=== PATIENT | female | born 1980 | race Caucasian/White ===

== ENCOUNTER → 2017-02-20 | Outpatient (CLI) | payer OTHER ==
[~2017-02-20] MED LIST: /ONDA4TA OR; ACET65TA OR; CIPR25SS OR; LEVO25TA2 OR; NO MEDS AT HOME; PERC5TAB8 OR; [UNRECOGNIZED DRUG - OTHER] PO; percocet PO
--- NOTE | 2017-02-20 16:18 | REP ---
OB ULTRASOUND: Real-time sonographic evaluation of the gravid uterus performed utilizing transabdominal and endovaginal technique. There is a single living intrauterine gestation with an estimated gestational age of 20 weeks 1 days based on today's ultrasound measurements, [facility] [place] 07/09/2017. BPD 46 mm = 19 weeks 6 days HC 164 mm = 19 weeks 1 day AC 159 mm = 21 weeks 0 days FL 34 mm = 20 weeks 5 days HC/AC ratio 1.03, is slightly below the normal range of 1.06 to 1.24. Estimated weight 368 grams, 63rd percentile. Cervix is closed and measures 2.9 cm in length. heart rate 137 beats per minute. SEEN/GROSSLY UNREMARKABLE Lateral ventricles no Posterior fossa no Upper lip no Four-chamber heart no LVOT no RVOT yes Stomach yes Cord insertion yes Three vessel cord yes Kidneys no Bladder yes Spine no position: Variable. Placenta: Anterior and grade 0 with no previa or abruption. Amniotic fluid: Within normal limits. Please note the umbilical cord is draped across the internal cervical os on transvaginal imaging. Signed by Vin Owens MD 02/20/2017 05:18 P
== END ==
LOC: M RAD 14:35
PROVIDERS: ATTEND Physician Assistant
DX: Z36 Encounter for antenatal screening of mother (principal); Z3A.20 20 weeks gestation of pregnancy

== ENCOUNTER → 2017-03-03 | Outpatient (CLI) | payer OTHER ==
[2017-03-03 17:44] LABS: BASO % 0.3 % (0.0-1.0); EOS # 0.3 K/mm3 (0.0-0.50); EOS % 2.2 % (0.0-3.0); LARGE UNSTAINED CELL # 0.1 K/mm3 (0.0-0.4); LARGE UNSTAINED CELL % 0.6 % (0.0-4.0); LYMPH # 1.7 K/mm3 (1.5-4.5); LYMPH % 12.8 % (24.0-44.0); MEAN CORPUSCULAR HEMOGLOBIN 31.7 pg (27.0-33.0); MEAN CORPUSCULAR HGB CONC 33.2 g/dl (32.0-36.5); MEAN CORPUSCULAR VOLUME 95.4 fl (80.0-96.0); MONO # 0.3 K/mm3 (0.0-0.8); MONO % 2.7 % (0.0-5.0); NEUTROPHILS # 10.4 K/mm3 (1.8-7.7); NEUTROPHILS % 81.4 % (36.0-66.0); PLATELET COUNT, AUTOMATED 268 k/mm3 (150-450); RED CELL DISTRIBUTION WIDTH 12.6 % (11.5-14.5); WHITE BLOOD COUNT 12.7 K/mm3 (4.0-10.0)
[2017-03-04 11:07] LABS: HBsAg Prenatal NEGATIVE (NEGATIVE)
== END ==
LOC: M WUC 10:44
PROVIDERS: ATTEND Advanced Practice Midwife
DX: Z34.82 Encounter for supervision of other normal pregnancy, second trimester (principal)

== ENCOUNTER → 2017-03-11 | Outpatient (CLI) | payer OTHER ==
--- NOTE | 2017-03-11 23:39 | REP ---
Clinical: Anatomical re-evaluation. Comparison: 05/29 . Findings: Examination demonstrates a single live intrauterine in transverse (head to maternal left) presentation. motion is identified by technologist. Placenta is noted anteriorly and grade zero without evidence for placenta previa or abruption. Amniotic fluid volume is normal. Cervix measures 4.6 cm in length and appears closed. No evidence for nuchal cord. Gestational age by LMP 22 weeks 6 days with CASS 07/09/2017 . Gestational age by current measurements 22 weeks 5 days with [facility] 07/10/2017 . FHR equals 155 beats per minute. Estimated weight 529 grams (40th percentile). Anatomical assessment demonstrates normal structures including cranium, choroid plexus, cavum, cerebellum/posterior fossa, facial features, lungs, four-chamber heart/left ventricular outflow tracts, diaphragm, stomach, cord insertion/three-vessel cord, kidneys/bladder, spine, and lower extremities. Impression: Single live intrauterine in transverse lie demonstrating appropriate interval growth. In conjunction with prior examination anatomical assessment is complete and normal. Signed by Johnson Morataya MD 03/11/2017 11:30 P
== END ==
LOC: M RAD 12:24
PROVIDERS: ATTEND Advanced Practice Midwife
DX: Z36 Encounter for antenatal screening of mother (principal); Z3A.22 22 weeks gestation of pregnancy

== ENCOUNTER → 2017-04-06 | Outpatient (CLI) | payer OTHER ==
[2017-04-06 20:04] LABS: BASO % 0.2 % (0.0-1.0); EOS # 0.2 10^3/uL (0.0-0.50); EOS % 1.6 % (0.0-3.0); IMMATURE GRANULOCYTE % 0.3 % (0-0); LYMPH # 1.9 10^3/uL (1.5-4.5); LYMPH % 13.1 % (24.0-44.0); MEAN CORPUSCULAR HEMOGLOBIN 30.2 pg (27.0-33.0); MEAN CORPUSCULAR HGB CONC 32.2 g/dl (32.0-36.5); MEAN CORPUSCULAR VOLUME 93.8 fl (80.0-96.0); MONO # 0.6 10^3/uL (0.0-0.8); MONO % 4.3 % (0.0-5.0); NEUTROPHILS # 11.4 10^3/uL (1.8-7.7); NEUTROPHILS % 80.5 % (36.0-66.0); PLATELET COUNT, AUTOMATED 278 10^3/uL (150-450); RED CELL DISTRIBUTION WIDTH 13.2 % (11.5-14.5); WHITE BLOOD COUNT 14.2 10^3/uL (4.0-10.0)
== END ==
LOC: M SMT 13:07
PROVIDERS: ATTEND Advanced Practice Midwife
DX: Z34.82 Encounter for supervision of other normal pregnancy, second trimester (principal)
CPT/HCPCS: 36415; 82950; 85025; 86850; 86900; 86901; J2790

== ENCOUNTER → 2017-06-29 | Outpatient (REF) | payer OTHER ==
[~2017-06-29] MED LIST changes: +COLA100C5 PO; +IBUP1TAB7 PO; +PERCOCET PO; +PRENCHW PO
== END ==
LOC: M LAB REF 17:10
PROVIDERS: ATTEND Advanced Practice Midwife
DX: Z34.83 Encounter for supervision of other normal pregnancy, third trimester (principal)

== ENCOUNTER 2017-07-02 06:32 | Inpatient (IN) | payer OTHER ==
[~2017-07-02] VITALS: Ht 152.4 cm; Wt 100.9 kg
[~2017-07-02 06:32] MED LIST changes: -COLA100C5 PO; -IBUP1TAB7 PO; -PERCOCET PO
[2017-07-02] MEDS ORDERED: LR 800 ML IV ONE (06:45)
[2017-07-02] MEDS ORDERED: LR 1,000 ML IV SCH ×2 (06:45→09:39)
[2017-07-02] MEDS ORDERED: BICITRA 30ML SOLN UDC PO ONE (06:45)
[2017-07-02 07:43] LABS: MEAN CORPUSCULAR HEMOGLOBIN 29.4 pg (27.0-33.0); MEAN CORPUSCULAR HGB CONC 33.1 g/dl (32.0-36.5); PLATELET COUNT, AUTOMATED 263 10^3/uL (150-450); RED CELL DISTRIBUTION WIDTH 13.4 % (11.5-14.5); WHITE BLOOD COUNT 11.2 10^3/uL (4.0-10.0)
[2017-07-02] MEDS ORDERED: OXYTOCIN INJ 10 UNITS/ML VIAL (J2590) As Ordered ONE (08:36)
[2017-07-02] MEDS ORDERED: MORPHINE PRES-FREE INJ 10 MG/10 ML VIAL (J2274) As Ordered ONE (08:36)
[2017-07-02] MEDS ORDERED: KETOROLAC 60 MG/2 ML VIAL (J1885) As Ordered ONE (08:56)
[2017-07-02] MEDS ORDERED: ONDANSETRON 4MG/2ML VIAL (J2405) As Ordered ONE (08:56)
[2017-07-02] MEDS ORDERED: COLA100C5 PO (09:42)
[2017-07-02] MEDS ORDERED: IBUP1TAB7 PO (09:42)
[2017-07-02] MEDS ORDERED: PERCOCET PO (09:43)
[2017-07-02] MEDS ORDERED: OXYTOCIN DRIP 30 UNITS in APPROPRIATE DILUENT 1 EA IV ONE (09:45)
[2017-07-02] MEDS ORDERED: MEASLES,MUMPS,RUBELLA VACCINE INJ (MMR-II) (90707) SC SCH (09:45)
[2017-07-02] MEDS ORDERED: RHOGAM 300 MCG (1500 IU) INJ (J2790) IM SCH (09:45)
[2017-07-02] MEDS ORDERED: ONDANSETRON 4MG/2ML VIAL (J2405) IV PRN ×3 (09:45→10:30)
[2017-07-02] MEDS ORDERED: MOM 30ML SUSPENSION UDC PO PRN (09:45)
[2017-07-02] MEDS ORDERED: PERCOCET 5MG/325MG TAB PO PRN ×2 (09:45)
[2017-07-02] MEDS ORDERED: fentaNYL 100 MCG/2 ML INJECTION (J3010) IV PRN ×2 (10:30)
[2017-07-02 11:18] VITALS: BP 135/68
[2017-07-02] MEDS: DOCUSATE SODIUM 100 MG CAP PO SCH ×2 (11:38→20:21)
[2017-07-02] MEDS: PRENATAL VITAMINS CHEWABLE TABLET PO SCH (11:38)
[2017-07-02] MEDS: FERROUS SULFATE 325MG TAB PO SCH (11:38)
[2017-07-02 11:50] VITALS: BP 141/64
[2017-07-02 12:50] VITALS: BP 118/60
[2017-07-02 13:50] VITALS: BP 109/57
[2017-07-02] MEDS: KETOROLAC 30 MG/ML VIAL (J1885) IV SCH ×2 (14:40→20:21)
[2017-07-02] MEDS ORDERED: SLF 3 ML SYR IV PRN (17:15)
[2017-07-02 18:00] VITALS: BP 121/61
[2017-07-02] MEDS: SLF 3 ML SYR IV SCH (20:22)
[2017-07-02 22:00] VITALS: BP 118/58
[2017-07-03] MEDS: SLF 3 ML SYR IV SCH (02:13)
[2017-07-03] MEDS: KETOROLAC 30 MG/ML VIAL (J1885) IV SCH (02:39)
[2017-07-03 06:00] VITALS: BP 123/62
[2017-07-03 07:30] LABS: MEAN CORPUSCULAR HEMOGLOBIN 29.2 pg (27.0-33.0); MEAN CORPUSCULAR HGB CONC 32.8 g/dl (32.0-36.5); MEAN CORPUSCULAR VOLUME 88.9 fl (80.0-96.0); PLATELET COUNT, AUTOMATED 226 10^3/uL (150-450); RED CELL DISTRIBUTION WIDTH 13.4 % (11.5-14.5)
[2017-07-03] MEDS: FERROUS SULFATE 325MG TAB PO SCH (08:36)
[2017-07-03] MEDS: DOCUSATE SODIUM 100 MG CAP PO SCH ×2 (08:36→20:29)
[2017-07-03] MEDS: PRENATAL VITAMINS CHEWABLE TABLET PO SCH (08:36)
[2017-07-03] MEDS ORDERED: ADACEL/BOOSTRIX VACCINE (DIPHTH/PERTUSS/ACELL/TETANUS)0.5ML SYR (90715) IM ONE (09:00)
[2017-07-03 10:02] VITALS: BP 121/70
[2017-07-03] MEDS: IBUPROFEN 800 MG TAB PO SCH ×2 (11:05→18:55)
[2017-07-03 14:03] VITALS: BP 121/60
[2017-07-03 18:03] VITALS: BP 125/71
[2017-07-03 22:37] VITALS: BP 125/60
[2017-07-04] MEDS: IBUPROFEN 800 MG TAB PO SCH ×2 (03:13→12:54)
[2017-07-04 06:46] VITALS: BP 136/77
[2017-07-04] MEDS: FERROUS SULFATE 325MG TAB PO SCH (08:20)
[2017-07-04] MEDS: DOCUSATE SODIUM 100 MG CAP PO SCH (08:20)
[2017-07-04] MEDS: PRENATAL VITAMINS CHEWABLE TABLET PO SCH (08:20)
--- NOTE | 2017-07-04 21:22 | RO ---
DATE OF PROCEDURE: 07/02/2017 PREPROCEDURE DIAGNOSIS: Prior section times two, 39 weeks, undesired fertility. POSTPROCEDURE DIAGNOSIS: Prior section times two, 39 weeks, undesired fertility. PROCEDURE: Repeat low transverse section with left partial salpingectomy. SURGEON: Dr. Donald Mcclure [employer] OFFICER: Dr. Erica Griffin ANESTHESIA: Spinal. ESTIMATED BLOOD LOSS: 600 mL. URINE OUTPUT: 200 mL. FINDINGS: 3960 gram or 8 pound 12 ounce male . scores 9 and 9. Adhesions of the uterus to the anterior abdominal wall. She had a thin lower uterine segment. There was a surgically absent right fallopian tube and normal appearing left fallopian tube. DESCRIPTION OF PROCEDURE: The patient was taken to the operating room where spinal anesthesia was induced. She was prepped and draped in a sterile fashion in the supine position. A Wilburn catheter was placed. A Pfannenstiel skin incision was made with a scalpel and carried through to the fascia. The fascia was nicked and extended. The fascia was dissected off the rectus muscles. The rectus muscles were divided. The peritoneal cavity was entered. Bladder flap was created, a curvilinear incision made in the lower uterine segment until bulging membranes were noted. Membranes were ruptured of clear fluid. The infant was delivered from the vertex position without difficulty. Cord was doubly clamped and cut. The was handed off to the awaiting nurses. Adhesions of the uterus to the anterior abdominal wall were taken down sharply. The uterus was then exteriorized and cleared of clots and debris. The uterine incision was closed with #0 Vicryl in a running locked fashion. Several [id number] sutures were placed. The right fallopian tube was noted to be surgically absent. The left fallopian tube was grasped with a Decorah clamp at its mid portion, a window was created in the broad ligament. A free tie of #3-0 chromic was placed around a segment of tube on either side of the Lo clamp and Metzenbaum scissors used to excise a segment of tube. The uterus was placed back in the abdominal cavity. The peritoneum was closed with #2-0 Vicryl in a running fashion. The fascia was closed with #0 Vicryl in a running fashion. The deep layer was irrigated and closed with #2-0 chromic. The skin was closed with #4-0 Monocryl subcuticular sutures. Sponge, instrument, needle counts were correct.
== END 2017-07-04 13:10 | disposition home or self-care (01) | DRG 540 ==
LOC: M LDI 06:32 → M OBS 11:05
PROVIDERS: ADMIT Specialist; ATTEND Specialist
PROC: 0UB60ZZ Excision of Left Fallopian Tube, Open Approach (ICD-10-PCS; 2017-07-02)
PROC: 10D00Z1 Extraction of Products of Conception, Low, Open Approach (ICD-10-PCS; principal; 2017-07-02 08:30)
PROC: 30233S1 Transfusion of Nonautologous Globulin into Peripheral Vein, Percutaneous Approach (ICD-10-PCS; 2017-07-03)
DX: O34.211 Maternal care for low transverse scar from previous cesarean delivery (principal); Z30.2 Encounter for sterilization; Z37.0 Single live birth; Z3A.39 39 weeks gestation of pregnancy

== ENCOUNTER → 2018-09-18 | Outpatient (REF) | payer OTHER ==
[~2018-09-18] MED LIST changes: +COLA100C5 PO; +IBUP1TAB7 PO; +PERCOCET PO
== END ==
LOC: M SFHCLERA 10:12
PROVIDERS: ATTEND Nurse Practitioner Family
DX: Z76.89 Persons encountering health services in other specified circumstances (principal)

== ENCOUNTER → 2018-11-12 | Outpatient (REF) | payer OTHER ==
[~2018-11-12] MED LIST changes: -/ONDA4TA OR; +ONDA-1 OR
[2018-11-12 18:21] LABS: BASO # 0.1 10^3/uL (0.0-0.2); BASO % 0.5 % (0.0-1.0); EOS # 0.4 10^3/uL (0.0-0.50); EOS % 3.4 % (0.0-3.0); HEMATOCRIT 39.8 % (36.0-47.0); HEMOGLOBIN 13.3 g/dl (12.0-15.5); LYMPH % 23.7 % (24.0-44.0); MEAN CORPUSCULAR HEMOGLOBIN 30.7 pg (27.0-33.0); MEAN CORPUSCULAR HGB CONC 33.4 g/dl (32.0-36.5); MEAN CORPUSCULAR VOLUME 91.9 fl (80.0-96.0); MONO # 0.6 10^3/uL (0.0-0.8); MONO % 4.6 % (0.0-5.0); NEUTROPHILS # 8.4 10^3/uL (1.8-7.7); NEUTROPHILS % 67.5 % (36.0-66.0); PLATELET COUNT, AUTOMATED 277 10^3/uL (150-450); RED BLOOD COUNT 4.33 10^6/uL (4.00-5.40); WHITE BLOOD COUNT 12.5 10^3/uL (4.0-10.0)
[2018-11-12 18:32] LABS: BLOOD UREA NITROGEN 11 MG/DL (7-18); CALCIUM LEVEL 8.9 MG/DL (8.5-10.1); CARBON DIOXIDE LEVEL 27 MEQ/L (21-32); CHLORIDE LEVEL 100 MEQ/L (98-107); CHOLESTEROL LEVEL 230 MG/DL (<200); CREATININE FOR GFR 0.71 MG/DL (0.55-1.30); FREE T4 1.14 NG/DL (0.76-1.46); GLOMERULAR FILTRATION RATE > 60.0 (>60); GLUCOSE, FASTING 82 MG/DL (70-100); HDL CHOLESTEROL 50 MG/DL (>40); LDL CHOLESTEROL 158 MG/DL (<100); NON-HDL-C 180 MG/DL; POTASSIUM SERUM 3.4 MEQ/L (3.5-5.1); SODIUM LEVEL 135 MEQ/L (136-145); TRIGLYCERIDES LEVEL 108 MG/DL (<150)
[2018-11-12 18:33] LABS: TOTAL 25(OH) VITAMIN D 23.4 NG/ML (30.0-100.0)
== END ==
LOC: M SFHCLERA 14:01
PROVIDERS: ATTEND Nurse Practitioner Family
DX: Z76.89 Persons encountering health services in other specified circumstances (principal)